=== PATIENT | male | born 1945 | race Caucasian/White ===

== ENCOUNTER 2017-01-26 08:12 | Emergency (ER) | payer MEDICARE, BC ==
--- NOTE | 2017-01-26 08:55 | EDM.PDOC ---
ED HPI GENERAL MEDICAL PROBLEM - General Chief Complaint: Chest Pain Stated Complaint: CHEST PAIN Time Seen by Provider: 01/26/17 08:50 Source of Information: Reports: Patient, Family History Limitations: Reports: No Limitations - History of Present Illness INITIAL COMMENTS - FREE TEXT/NARRATIVE: pt got up and he took a pill. He has some swallowing difficulty since he had a cervical fracture. He felt like this did not go down as well as it should. Onset: Sudden Duration: Other (lasted about 3/4 hour. ) Location: Reports: Neck, Other (Pt had burning in the neck area and he never had chest pain. ) Quality: Reports: Burning Associated Symptoms: Reports: Other (neck ) Throat Pain Score (Numeric/FACES): 6 - Related Data Allergies Allergy/AdvReac Type Severity Reaction Status Date / Time codeine Allergy Itching Verified 01/26/17 08:22 morphine Allergy Anaphylactic Verified 01/26/17 08:22 Shock Home Meds: Home Meds Beclomethasone Dipropionate [Qvar] 8.7 gm IH BID 05/21/13 [History] Bethanechol [Urecholine] 25 mg PO QID 05/21/13 [History] Cranberry Conc/Ascorbic Acid [Cranberry Plus Vitamin C Sftgl] 1 each PO BID [History] Cyanocobalamin (Vitamin B-12) [Vitamin B-12] 1,000 mcg PO DAILY 05/21/13 [ History] Doxazosin [Doxazosin Mesylate] 8 mg PO DAILY 05/21/13 [History] Gemfibrozil 600 mg PO DAILY 05/21/13 [History] Multivitamin [Multi-Vitamin Daily] 1 each PO DAILY 05/21/13 [History] Buspirone Hcl 15 mg PO BID 08/13/14 [History] Nasacort 2 spray TOP DAILY 09/01/14 [History] Diclofenac Sodium [Voltaren] 50 mg PO BID 01/26/17 [History] Past Medical History Cardiovascular History: Reports: High Cholesterol Respiratory History: Reports: Other (See Below) Other Respiratory History: air hunger Gastrointestinal History: Reports: GERD, Other (See Below) Other Gastrointestinal History: swollowing problem Genitourinary History: Reports: Neurogenic Bladder Musculoskeletal History: Reports: Back Pain, Chronic, Fracture Other Musculoskeletal History: heel fx neck Psychiatric History: Reports: Anxiety Hematologic History: Reports: Blood Transfusion(s) - Infectious Disease History Infectious Disease History: Reports: Chicken Pox, Measles, Mumps Social & Family History - Tobacco Use Smoking Status *Q: Never Smoker Second Hand Smoke Exposure: No - Caffeine Use Caffeine Use: Reports: Soda, Tea - Alcohol Use Days Per Week of Alcohol Use: 0 - Recreational Drug Use Recreational Drug Use: No ED ROS GENERAL - Review of Systems Review Of Systems: See Below Constitutional: Reports: No Symptoms HEENT: Reports: No Symptoms Respiratory: Reports: No Symptoms, Other ( burning in throat. ) Cardiovascular: Reports: No Symptoms Endocrine: Reports: No Symptoms GI/Abdominal: Reports: Other ( throat pain) : Reports: No Symptoms Musculoskeletal: Reports: No Symptoms Skin: Reports: No Symptoms ED EXAM, GENERAL - Physical Exam Exam: See Below Free Text/Narrative:: pt arrived with pain in th throat that lasted about 3/4 hour. This felt like the heart burn he has had in the past. The pain did go away by itself. He has alot of gerd and swallowing difficulty. Exam Limited By: No Limitations General Appearance: Alert, No Apparent Distress, Anxious Ears: Normal TMs Nose: Normal Inspection Throat/Mouth: Normal Inspection Head: Atraumatic Neck: Other ( burning in the throat. ) Respiratory/Chest: No Respiratory Distress Cardiovascular: Regular Rate, Rhythm (Male) Exam: Deferred Rectal (Males) Exam: Deferred Back Exam: Normal Inspection Extremities: Normal Inspection Neurological: Alert, Oriented, Normal Cognition Psychiatric: Normal Affect Course - Vital Signs Last Recorded V/S: Last Vital Signs Temp 36.2 C 01/26/17 08:22 Pulse 117 H 01/26/17 08:22 Resp 14 01/26/17 08:22 BP 126/73 01/26/17 08:22 Pulse Ox 93 L 01/26/17 08:22 - Orders/Labs/Meds Orders: Active Orders 24 hr Category Date Time Status EKG Documentation Completion [RC] ASDIRECTED Care 01/26/17 08:15 Active Chest 2V [CR] Stat Exams 01/26/17 09:22 Taken EKG 12 Lead [EK] Routine Ther 01/26/17 08:15 Ordered Labs: Laboratory Tests 01/26/17 01/26/17 01/26/17 Range/Units 08:40 08:40 08:40 WBC 8.4 (4.5-11.0) K/uL RBC 4.42 (4.30-5.90) M/uL Hgb 14.5 (12.0-15.0) g/dL Hct 43.4 (40.0-54.0) % MCV 98 (80-98) fL MCH 33 H (27-31) pg MCHC 33 (32-36) % Plt Count 154 (150-400) K/uL Neut % (Auto) 73 H (36-66) % Lymph % (Auto) 18 L (24-44) % [place] % (Auto) 6 (2-6) % Eos % (Auto) 3 (2-4) % Baso % (Auto) 1 (0-1) % Sodium 137 L (140-148) mmol/L Potassium 4.5 (3.6-5.2) mmol/L Chloride 104 (100-108) mmol/L Carbon Dioxide 23 (21-32) mmol/L Anion Gap 14.5 H (5.0-14.0) mmol/L BUN 32 H (7-18) mg/dL Creatinine 1.0 (0.8-1.3) mg/dL Est Cr Clr Drug Dosing TNP Estimated GFR (MDRD) > 60 (>60) Glucose 242 H (74-106) mg/dL Calcium 8.3 L (8.5-10.1) mg/dL Total Bilirubin 0.4 (0.2-1.0) mg/dL AST 37 (15-37) U/L ALT 53 (12-78) U/L Alkaline Phosphatase 71 (46-116) U/L Creatine Kinase 79 (39-308) U/L Troponin I < 0.017 (0.000-0.056) ng/mL Total Protein 7.3 (6.4-8.2) g/dL Albumin 3.2 L (3.4-5.0) g/dL Globulin 4.1 H (2.3-3.5) g/dL Albumin/Globulin Ratio 0.8 L (1.2-2.2) - Re-Assessments/Exams Free Text/Narrative Re-Assessment/Exam: 01/26/17 09:48 cardiac enzymes were normal. Bs is mildly elevated. He has not had any further pain since it went away. Departure - Departure Time of Disposition: 09:50 Disposition: Home, Self-Care 01 Condition: fair Clinical Impression: Esophageal spasm Forms: ED Department Discharge Care Plan Goals: cont same meds, rtc for a lexiscan. rtc to ER if patient has further throat pain., that is severe. - My Orders Last 24 Hours: My Active Orders 01/26/17 08:15 EKG Documentation Completion [RC] ASDIRECTED EKG 12 Lead [EK] Routine 01/26/17 09:22 Chest 2V [CR] Stat - Assessment/Plan Last 24 Hours: My Active Orders 01/26/17 08:15 EKG Documentation Completion [RC] ASDIRECTED EKG 12 Lead [EK] Routine 01/26/17 09:22 Chest 2V [CR] Stat
[2017-01-26 10:03] VITALS: BP 115/72
--- NOTE | 2017-01-26 10:14 | CR ---
Heart size upper limits of normal. Point vasculature within normal limits. Apical pleural thickening . No focal consolidation.
--- NOTE | 2017-01-31 08:06 | LETTER ---
DEVON Zhang [address] [place] [address] 01/29/2017 RE: PRASHANT DEVON Bennett : 1945 Dear Devon, You recently were in the emergency room and had an episode of severe burning in the throat area and upper chest area. It was thought since it dissipated, that it probably was acid that was creating the problem. Because of the fact that you had had this for a couple 3 hours, a decision was made to obtain a cardiac stress test. This has been accomplished and has returned completely normal. At this point, I do feel it was a reflux issue and no further followup in terms of the cardiac side of it need to be done. If you have questions, feel free to contact me. Sincerely, /[phone]
== END 2017-01-26 10:10 | disposition home or self-care (01) ==
LOC: JP.ED 08:12
DX: K22.4 Dyskinesia of esophagus (principal); E78.00 Pure hypercholesterolemia, unspecified; K21.9 Gastro-esophageal reflux disease without esophagitis; G89.29 Other chronic pain; M54.9 Dorsalgia, unspecified; Z79.899 Other long term (current) drug therapy; Z88.5 Allergy status to narcotic agent
CPT/HCPCS: 36415; 71020; 71020-26; 80053; 82550; 84484; 85025; 93005; 93010; 99282; 99285-25

== ENCOUNTER 2017-04-16 00:33 | Observation (INO) | payer MEDICARE, BC ==
[2017-04-16] MEDS ORDERED: LORazepam 2 MG/ML MDV IVPUSH ONE (01:07)
[2017-04-16] MEDS ORDERED: Sodium Chloride 0.9% 1,000 ML IV SCH ×4 (02:00→04:00)
--- NOTE | 2017-04-16 02:00 | EDM.PDOC ---
ED HPI GENERAL MEDICAL PROBLEM - General Chief Complaint: Diabetic Complaint Stated Complaint: MOUTH DRY / FREQUENT URINATION Time Seen by Provider: 04/16/17 00:50 Source of Information: Reports: Patient, Family History Limitations: Reports: No Limitations - History of Present Illness INITIAL COMMENTS - FREE TEXT/NARRATIVE: pt has had a dry mouth and has been going to the Br alot. He has noted this for a few weeks. He checked his bs and it was too high to read on a glucometer. Onset: Gradual Duration: Week(s):, Other (pt has had a very dry mouth. ) Associated Symptoms: Reports: Other ( dry. mouth and urinary frequency Pt has been drinking large amounts of pop because of the dry mouth. ) Generalized Pain Score (Numeric/FACES): 3 - Related Data Allergies Allergy/AdvReac Type Severity Reaction Status Date / Time codeine Allergy Itching Verified 01/27/17 08:40 morphine Allergy Anaphylactic Verified 01/27/17 08:40 Shock Home Meds: Home Meds Beclomethasone Dipropionate [Qvar 80 Mcg] 8.7 gm IH BID 05/21/13 [History] Bethanechol [Urecholine] 25 mg PO QID 05/21/13 [History] Cranberry Conc/Ascorbic Acid [Cranberry Plus Vitamin C Sftgl] 1 each PO BID [History] Cyanocobalamin (Vitamin B-12) [Vitamin B-12] 1,000 mcg PO DAILY 05/21/13 [ History] Doxazosin [Cardura] 8 mg PO DAILY 05/21/13 [History] Gemfibrozil 600 mg PO BID 05/21/13 [History] Buspirone Hcl 15 mg PO BID 08/13/14 [History] Diclofenac Sodium [Voltaren] 50 mg PO TID 01/26/17 [History] Insulin Aspart [Novolog Flexpen] 1 unit SQ TIDMEALS #2 pen 04/17/17 [Rx] Insulin Detemir [Levemir] 25 unit SUBCUT BEDTIME #2 pen 04/17/17 [Rx] metFORMIN [Glucophage] 500 mg PO BIDMEALS #60 tablet 04/17/17 [Rx] Past Medical History HEENT History: Reports: Other (See Below) Other HEENT History: glasses. deviated R septum. cpap. throat dry some times problem with swallowing Cardiovascular History: Reports: High Cholesterol Respiratory History: Reports: Other (See Below) Other Respiratory History: air hunger Gastrointestinal History: Reports: GERD, Other (See Below) Other Gastrointestinal History: swollowing problem Genitourinary History: Reports: Neurogenic Bladder Musculoskeletal History: Reports: Back Pain, Chronic, Fracture Other Musculoskeletal History: heel fx neck Psychiatric History: Reports: Anxiety Hematologic History: Reports: Blood Transfusion(s) - Infectious Disease History Infectious Disease History: Reports: Chicken Pox, Measles, Mumps - Past Surgical History GI Surgical History: Reports: Hernia, Abdominal Social & Family History - Tobacco Use Smoking Status *Q: Never Smoker Second Hand Smoke Exposure: No - Caffeine Use Caffeine Use: Reports: Tea - Alcohol Use Days Per Week of Alcohol Use: 0 - Recreational Drug Use Recreational Drug Use: No ED ROS GENERAL - Review of Systems Review Of Systems: See Below Constitutional: Reports: No Symptoms HEENT: Reports: Other ( dry mouth) Respiratory: Reports: No Symptoms Cardiovascular: Reports: No Symptoms Endocrine: Reports: No Symptoms GI/Abdominal: Reports: No Symptoms : Reports: Frequency Musculoskeletal: Reports: No Symptoms Skin: Reports: No Symptoms ED EXAM GENERAL NO PERIP PULSE - Physical Exam Exam: See Below Text/Narrative:: pt had a bs on the glocometer which was not readable it was so high. Exam Limited By: No Limitations General Appearance: Alert, Anxious Ears: Normal TMs Nose: Normal Inspection Throat/Mouth: Normal Inspection Head: Atraumatic Neck: Normal Inspection Respiratory/Chest: No Respiratory Distress Cardiovascular: Regular Rate, Rhythm GI/Abdominal: Soft, Non-Tender (Male) Exam: Deferred Rectal (Males) Exam: Deferred Back Exam: Normal Inspection Extremities: Normal Inspection Course - Vital Signs Last Recorded V/S: Last Vital Signs Temp 36.3 C 04/17/17 11:10 Pulse 84 04/17/17 11:10 Resp 16 04/17/17 11:10 BP 137/74 04/17/17 11:10 Pulse Ox 94 L 04/17/17 11:10 - Orders/Labs/Meds Labs: Laboratory Tests 04/16/17 04/16/17 04/16/17 Range/Units 01:00 01:00 01:00 WBC 6.8 (4.5-11.0) K/uL RBC 4.29 L (4.30-5.90) M/uL Hgb 14.1 (12.0-15.0) g/dL Hct 41.9 (40.0-54.0) % MCV 98 (80-98) fL MCH 33 H (27-31) pg MCHC 34 (32-36) % Plt Count 135 L (150-400) K/uL Neut % (Auto) 69 H (36-66) % Lymph % (Auto) 22 L (24-44) % [place] % (Auto) 6 (2-6) % Eos % (Auto) 2 (2-4) % Baso % (Auto) 1 (0-1) % Sodium 133 L (140-148) mmol/L Potassium 5.1 (3.6-5.2) mmol/L Chloride 97 L (100-108) mmol/L Carbon Dioxide 28 (21-32) mmol/L Anion Gap 13.1 (5.0-14.0) mmol/L BUN 34 H (7-18) mg/dL Creatinine 1.8 H D (0.8-1.3) mg/dL Est Cr Clr Drug Dosing 45.64 mL/min Estimated GFR (MDRD) 37 L (>60) Glucose 666 H* (74-106) mg/dL Hemoglobin A1c 11.5 H (4.5-6.2) % Calcium 9.2 (8.5-10.1) mg/dL Total Bilirubin 0.6 (0.2-1.0) mg/dL AST 62 H (15-37) U/L ALT 84 H (12-78) U/L Alkaline Phosphatase 85 (46-116) U/L Total Protein 7.8 (6.4-8.2) g/dL Albumin 3.3 L (3.4-5.0) g/dL Globulin 4.5 H (2.3-3.5) g/dL Albumin/Globulin Ratio 0.7 L (1.2-2.2) Lipase (73-393) U/L Urine Color Urine Appearance Urine pH (4.5-8.0) Ur Specific [place] (1.008-1.030) Urine Protein (NEGATIVE) mg/dL Urine Glucose (UA) (NEGATIVE) mg/dL Urine Ketones (NEGATIVE) mg/dL Urine Occult Blood (NEGATIVE) Urine Nitrite (NEGAITVE) Urine Bilirubin (NEGATIVE) Urine Urobilinogen (NORMAL) mg/dL Ur Leukocyte Esterase (NEGATIVE) Urine RBC (0-5) Urine WBC (0-5) Ur Epithelial Cells Amorphous Sediment Urine Bacteria Urine Mucus 04/16/17 04/16/17 04/16/17 Range/Units 01:15 03:10 03:30 WBC (4.5-11.0) K/uL RBC (4.30-5.90) M/uL Hgb (12.0-15.0) g/dL Hct (40.0-54.0) % MCV (80-98) fL MCH (27-31) pg MCHC (32-36) % Plt Count (150-400) K/uL Neut % (Auto) (36-66) % Lymph % (Auto) (24-44) % [place] % (Auto) (2-6) % Eos % (Auto) (2-4) % Baso % (Auto) (0-1) % Sodium (140-148) mmol/L Potassium (3.6-5.2) mmol/L Chloride (100-108) mmol/L Carbon Dioxide (21-32) mmol/L Anion Gap (5.0-14.0) mmol/L BUN (7-18) mg/dL Creatinine (0.8-1.3) mg/dL Est Cr Clr Drug Dosing mL/min Estimated GFR (MDRD) (>60) Glucose 602 H* (74-106) mg/dL Hemoglobin A1c (4.5-6.2) % Calcium (8.5-10.1) mg/dL Total Bilirubin (0.2-1.0) mg/dL AST (15-37) U/L ALT (12-78) U/L Alkaline Phosphatase (46-116) U/L Total Protein (6.4-8.2) g/dL Albumin (3.4-5.0) g/dL Globulin (2.3-3.5) g/dL Albumin/Globulin Ratio (1.2-2.2) Lipase 450 H (73-393) U/L Urine Color Yellow Urine Appearance Clear Urine pH 5.0 (4.5-8.0) Ur Specific [place] 1.010 (1.008-1.030) Urine Protein Negative (NEGATIVE) mg/dL Urine Glucose (UA) >1000 H (NEGATIVE) mg/dL Urine Ketones Negative (NEGATIVE) mg/dL Urine Occult Blood Negative (NEGATIVE) Urine Nitrite Negative (NEGAITVE) Urine Bilirubin Negative (NEGATIVE) Urine Urobilinogen Normal (NORMAL) mg/dL Ur Leukocyte Esterase Negative (NEGATIVE) Urine RBC 0-5 (0-5) Urine WBC 0-5 (0-5) Ur Epithelial Cells Rare Amorphous Sediment Not seen Urine Bacteria Few Urine Mucus Not seen 04/16/17 Range/Units 05:00 WBC (4.5-11.0) K/uL RBC (4.30-5.90) M/uL Hgb (12.0-15.0) g/dL Hct (40.0-54.0) % MCV (80-98) fL MCH (27-31) pg MCHC (32-36) % Plt Count (150-400) K/uL Neut % (Auto) (36-66) % Lymph % (Auto) (24-44) % [place] % (Auto) (2-6) % Eos % (Auto) (2-4) % Baso % (Auto) (0-1) % Sodium (140-148) mmol/L Potassium (3.6-5.2) mmol/L Chloride (100-108) mmol/L Carbon Dioxide (21-32) mmol/L Anion Gap (5.0-14.0) mmol/L BUN (7-18) mg/dL Creatinine (0.8-1.3) mg/dL Est Cr Clr Drug Dosing mL/min Estimated GFR (MDRD) (>60) Glucose 499 H* (74-106) mg/dL Hemoglobin A1c (4.5-6.2) % Calcium (8.5-10.1) mg/dL Total Bilirubin (0.2-1.0) mg/dL AST (15-37) U/L ALT (12-78) U/L Alkaline Phosphatase (46-116) U/L Total Protein (6.4-8.2) g/dL Albumin (3.4-5.0) g/dL Globulin (2.3-3.5) g/dL Albumin/Globulin Ratio (1.2-2.2) Lipase (73-393) U/L Urine Color Urine Appearance Urine pH (4.5-8.0) Ur Specific [place] (1.008-1.030) Urine Protein (NEGATIVE) mg/dL Urine Glucose (UA) (NEGATIVE) mg/dL Urine Ketones (NEGATIVE) mg/dL Urine Occult Blood (NEGATIVE) Urine Nitrite (NEGAITVE) Urine Bilirubin (NEGATIVE) Urine Urobilinogen (NORMAL) mg/dL Ur Leukocyte Esterase (NEGATIVE) Urine RBC (0-5) Urine WBC (0-5) Ur Epithelial Cells Amorphous Sediment Urine Bacteria Urine Mucus Meds: Medications Discontinued Medications Generic Name Dose Route Start Last Admin Trade Name Freq PRN Reason Stop Dose Admin Acetaminophen 650 mg 04/16/17 07:55 Tylenol PO Q4H PRN Pain (Mild 1-3)/fever Albuterol 2.5 mg 04/16/17 07:55 Proventil Neb Soln NEB Q4H PRN Shortness Of Breath/wheezing Dextrose 15 gm 04/16/17 07:55 Glutose 15 PO ONETIME PRN Hypoglycemia Dextrose/Water 50 ml 04/16/17 07:55 Dextrose 50% In Water IV ONETIME PRN Hypoglycemia Docusate Sodium 100 mg 04/16/17 07:55 04/17/17 10:36 Colace PO 100 mg BID PRN Administration Constipation Enoxaparin Sodium 40 mg 04/16/17 09:00 04/17/17 08:01 Lovenox SUBCUT 40 mg DAILY JASON Administration Gemfibrozil 600 mg 04/16/17 11:30 04/17/17 07:42 Lopid PO 600 mg BIDAC JASON Administration Sodium Chloride 1,000 mls @ 999 mls/hr 04/16/17 02:00 04/16/17 02:03 Normal Saline IV 999 mls/hr ASDIRECTED JASON Administration Sodium Chloride 1,000 mls @ 999 mls/hr 04/16/17 02:00 04/16/17 03:00 Normal Saline IV 999 mls/hr ASDIRECTED JASON Administration Sodium Chloride 1,000 mls @ 200 mls/hr 04/16/17 04:00 04/16/17 03:59 Normal Saline IV 200 mls/hr ASDIRECTED JASON Administration Sodium Chloride 1,000 mls @ 75 mls/hr 04/16/17 07:55 04/16/17 23:48 Normal Saline IV 75 mls/hr ASDIRECTED JASON Administration Insulin Aspart Confirm 04/16/17 02:07 04/16/17 02:18 Novolog Administered 04/16/17 02:08 10 units Dose Administration 1,000 unit .ROUTE .STK-MED ONE Insulin Aspart 10 unit 04/16/17 03:38 04/16/17 03:50 Novolog SUBCUT 04/16/17 03:39 10 units ONETIME ONE Administration Insulin Aspart 20 unit 04/16/17 05:43 04/16/17 05:53 Novolog SUBCUT 04/16/17 05:44 20 units ONETIME ONE Administration Insulin Aspart 10 unit 04/16/17 07:45 04/16/17 07:43 Novolog SUBCUT 04/16/17 07:46 10 units ONETIME ONE Administration Insulin Aspart 0 unit 04/16/17 07:55 04/17/17 11:58 Novolog SUBCUT 8 units ASDIRECTED JASON Administration Protocol Insulin Aspart 0 unit 04/16/17 19:15 04/16/17 19:36 Novolog SUBCUT 04/16/17 19:16 8 units ONETIME ONE Administration Insulin Detemir 12 unit 04/16/17 07:45 04/16/17 07:44 Levemir SUBCUT 04/16/17 07:46 12 units ONETIME ONE Administration Insulin Detemir 20 unit 04/16/17 21:00 04/16/17 21:19 Levemir SUBCUT 20 units BEDTIME JASON Administration Lorazepam 0.25 mg 04/16/17 01:07 04/16/17 02:20 Ativan IVPUSH 04/16/17 01:08 Not Given ONETIME ONE Magnesium Hydroxide 30 ml 04/16/17 07:55 Milk Of Magnesia PO Q12H PRN Constipation Metformin HCl 500 mg 04/16/17 08:00 04/17/17 07:43 Glucophage PO 500 mg BIDMEALS JASON Administration Qvar 80 Mcg Inhaler 0 gm 04/16/17 12:00 04/17/17 08:01 (Ptom) IH 1 gm BIDRT JASON Administration Bethanechol 25 Mg ( 0 mg 04/16/17 12:00 04/17/17 10:33 Ptom) PO 25 mg QID JASON Administration Buspirone 15 Mg ( 0 mg 04/16/17 12:00 04/17/17 08:00 Ptom) PO 1 mg BID JASON Administration Cranberry Conc/ 0 each 04/16/17 12:00 04/17/17 08:00 Ascorbic Acid (Ptom) PO 1 each BID JASON Administration Doxazosin 8 Mg (Ptom 0 mg 04/16/17 11:00 04/16/17 11:40 ) PO Not Given DAILY JASON Doxazosin 8 Mg (Ptom 0 mg 04/16/17 21:00 04/16/17 20:52 ) PO 8 mg BEDTIME JASON Administration Ondansetron HCl 4 mg 04/16/17 07:55 04/16/17 18:37 Zofran IV 4 mg Q4H PRN Administration Nausea/Vomiting Oxycodone HCl 5 mg 04/16/17 07:55 Oxycodone PO Q4H PRN Pain (moderate 4-6) Pantoprazole Sodium 40 mg 04/16/17 15:00 04/17/17 07:43 Protonix PO 40 mg DAILY@0730 JASON Administration Polyethylene Glycol 17 gm 04/16/17 07:55 Miralax PO DAILY PRN Constipation Sodium Chloride 10 ml 04/16/17 07:55 Saline Flush FLUSH ASDIRECTED PRN Keep Vein Open - Re-Assessments/Exams Free Text/Narrative Re-Assessment/Exam: 04/16/17 02:01 pt was given 2 liters of fluid and novolog . 10 unit subq. 04/16/17 05:46 pt has had a total of 30 units of novolog. His bs is still 499. will plan to admit the pt and continue to hydrate and then have him see the manager validation at the clinic. Departure - Departure Time of Disposition: 11:25 Disposition: Admitted As Inpatient 67 Condition: Fair Clinical Impression: Hyperglycemia, Renal insufficiency, mild, Dehydration Type 2 diabetes mellitus Qualifiers: Diabetes mellitus complication status: with hyperglycemia Diabetes mellitus termite exterminator helper insulin use: unspecified termite exterminator helper insulin use status Qualified Code(s ): E11.65 - Type 2 diabetes mellitus with hyperglycemia - Discharge Information
[2017-04-16] MEDS ORDERED: Insulin Aspart 100 Units/ML 3 ML Pen SUBCUT ONE ×4 (03:38→19:15)
[2017-04-16] MEDS ORDERED: Insulin Lispro 100 Units/ML 3 ML Vial SUBCUT SCH (07:30)
[2017-04-16] MEDS ORDERED: Insulin Detemir 100 Units/ML 3 ML Pen SUBCUT ONE (07:45)
[2017-04-16] MEDS ORDERED: 50% Dextrose in Water 50 ML Syringe IV PRN (07:55)
[2017-04-16] MEDS ORDERED: Acetaminophen 325 MG Tab PO PRN (07:55)
[2017-04-16] MEDS ORDERED: Sodium Chloride 0.9% 10 ML Syringe FLUSH PRN (07:55)
[2017-04-16] MEDS ORDERED: oxyCODONE 5 MG Tab PO PRN (07:55)
[2017-04-16] MEDS ORDERED: Glucose Gel 15 GM in 37.5 GM Tube PO PRN (07:55)
[2017-04-16] MEDS ORDERED: Ondansetron 4 MG/2 ML SDV IV PRN (07:55)
[2017-04-16] MEDS ORDERED: Polyethylene Glycol 3350 Powder 17 GM Packet PO PRN (07:55)
[2017-04-16] MEDS ORDERED: Docusate Sodium 100 MG Cap PO PRN (07:55)
[2017-04-16] MEDS ORDERED: Albuterol 0.083% 2.5 MG/3 ML Neb Soln NEB PRN (07:55)
[2017-04-16] MEDS ORDERED: Magnesium Hydroxide 400 MG/5 ML Susp 30 ML Cup PO PRN (07:55)
[2017-04-16] MEDS: metFORMIN 500 MG Tab PO SCH ×2 (09:05→16:51)
[2017-04-16] MEDS: Enoxaparin 40 MG/0.4 ML Syringe SUBCUT SCH (09:06)
[2017-04-16] MEDS: Sodium Chloride 0.9% 1,000 ML IV SCH ×2 (09:07→23:48)
[2017-04-16] MEDS ORDERED: DOXAZOSIN 8 MG PO SCH ×2 (11:00→21:00)
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
[2017-04-16] MEDS: Insulin Aspart 100 Units/ML 3 ML Pen SUBCUT SCH ×3 (11:37→21:20)
[2017-04-16] MEDS: GEMFIBROZIL 600 MG PO SCH ×2 (11:41→15:31)
[2017-04-16] MEDS: BETHANECHOL 25 MG PO SCH ×4 (11:44→21:07)
[2017-04-16] MEDS: QVAR 80 MCG IH SCH ×2 (11:44→20:49)
[2017-04-16] MEDS: BUSPIRONE 15 MG PO SCH ×2 (11:45→20:51)
[2017-04-16] MEDS: CRANBERRY PO SCH ×2 (11:45→20:50)
[2017-04-16] MEDS: ASCORBIC ACID PO SCH ×2 (11:45→20:50)
[2017-04-16] MEDS: Pantoprazole 40 MG Tab.CR PO SCH (15:29)
[2017-04-16] MEDS ORDERED: Insulin Detemir 100 Units/ML 3 ML Pen SUBCUT SCH (21:00)
[2017-04-17] MEDS: BETHANECHOL 25 MG PO SCH ×3 (04:20→10:33)
[2017-04-17] MEDS: GEMFIBROZIL 600 MG PO SCH (07:42)
[2017-04-17] MEDS: Pantoprazole 40 MG Tab.CR PO SCH (07:43)
[2017-04-17] MEDS: metFORMIN 500 MG Tab PO SCH (07:43)
[2017-04-17] MEDS: Insulin Aspart 100 Units/ML 3 ML Pen SUBCUT SCH ×2 (07:44→11:58)
[2017-04-17] MEDS: BUSPIRONE 15 MG PO SCH (08:00)
[2017-04-17] MEDS: CRANBERRY PO SCH (08:00)
[2017-04-17] MEDS: ASCORBIC ACID PO SCH (08:00)
[2017-04-17] MEDS: Enoxaparin 40 MG/0.4 ML Syringe SUBCUT SCH (08:01)
[2017-04-17] MEDS: QVAR 80 MCG IH SCH (08:01)
[2017-04-17 11:11] VITALS: BP 137/74
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
== END 2017-04-17 17:29 | disposition home or self-care (01) ==
LOC: JP.ED 00:33 → JP.MS 07:24
PROVIDERS: ADMIT Hospitalist; ATTEND Internal Medicine
DX: E11.65 Type 2 diabetes mellitus with hyperglycemia (principal); N17.9 Acute kidney failure, unspecified; E86.0 Dehydration; K21.9 Gastro-esophageal reflux disease without esophagitis; F41.9 Anxiety disorder, unspecified; E78.00 Pure hypercholesterolemia, unspecified; Z98.890 Other specified postprocedural states; Z87.891 Personal history of nicotine dependence; Z79.4 Long term (current) use of insulin; Z79.84 Long term (current) use of oral hypoglycemic drugs; Z79.899 Other long term (current) drug therapy; Z88.8 Allergy status to other drugs, medicaments and biological substances
CPT/HCPCS: 36415; 80048; 80053; 81001; 82947; 82962; 83036; 83690; 85025; 96360; 96361; 96372; 96374; 99284; A9270; G0378; J1650; J2405; J7040; 99235

== ENCOUNTER 2020-03-06 06:49 | Emergency (ER) | payer MEDICARE, BC ==
[2020-03-06 07:05] VITALS: BP 130/44; PULSE 78
[2020-03-06] MEDS ORDERED: HYDROmorphone 1 MG/ML Syringe IVPUSH ONE (07:19)
--- NOTE | 2020-03-06 07:26 | EDM.PDOC ---
ED HPI GENERAL MEDICAL PROBLEM - General Chief Complaint: Lower Extremity Injury/Pain Stated Complaint: MEDICAL VIA [facility] Time Seen by Provider: 03/06/20 07:15 Source of Information: Reports: Patient, Family, RN Notes Reviewed History Limitations: Reports: No Limitations - History of Present Illness INITIAL COMMENTS - FREE TEXT/NARRATIVE: 74-year-old gentleman presents emergency department today with complaint of hip and knee pain. Does have a history of chronic back pain in which he receives steroid injections for. However this morning when he was using his walker felt very weak left himself to the ground in an awkward position has been unable to stand and now is experiencing significant hip pain rates it 8 out of 10. He cannot recall any details of the event states he did not lose consciousness did not hit his head just feels like his leg gave out on him - Related Data Allergies Allergy/AdvReac Type Severity Reaction Status Date / Time codeine Allergy Itching Verified 03/06/20 06:56 morphine Allergy Anaphylactic Verified 03/06/20 06:56 Shock Home Meds: Home Meds Beclomethasone Dipropionate [Qvar 80 Mcg] 8.7 gm IH BID 05/21/13 [History] Bethanechol [Urecholine] 25 mg PO QID 05/21/13 [History] Cranberry Conc/Ascorbic Acid [Cranberry Plus Vitamin C Sftgl] 1 each PO BID [History] Cyanocobalamin (Vitamin B-12) [Vitamin B-12] 1,000 mcg PO DAILY 05/21/13 [History] Doxazosin [Cardura] 8 mg PO DAILY 05/21/13 [History] Gemfibrozil 600 mg PO BID 05/21/13 [History] Buspirone Hcl 15 mg PO BID 08/13/14 [History] Diclofenac Sodium [Voltaren] 50 mg PO TID 01/26/17 [History] Insulin Aspart [Novolog Flexpen] 1 unit SQ TIDMEALS #2 pen 04/17/17 [Rx] Insulin Detemir [Levemir] 25 unit SUBCUT BEDTIME #2 pen 04/17/17 [Rx] glipiZIDE [Glipizide ER] 10 mg PO DAILY 02/19/20 [History] Past Medical History HEENT History: Reports: Other (See Below) Other HEENT History: glasses. deviated R septum. cpap. throat dry some times problem with swallowing Cardiovascular History: Reports: High Cholesterol, Hypertension Respiratory History: Reports: Other (See Below) Other Respiratory History: air hunger Gastrointestinal History: Reports: GERD, Other (See Below) Other Gastrointestinal History: swollowing problem Genitourinary History: Reports: Neurogenic Bladder Musculoskeletal History: Reports: Back Pain, Chronic, Fracture Other Musculoskeletal History: heel fx neck Psychiatric History: Reports: Anxiety Hematologic History: Reports: Blood Transfusion(s) - Infectious Disease History Infectious Disease History: Reports: Chicken Pox, Measles, Mumps - Past Surgical History GI Surgical History: Reports: Hernia, Abdominal Social & Family History - Tobacco Use Smoking Status *Q: Never Smoker - Caffeine Use Caffeine Use: Reports: Tea Review of Systems - Review of Systems Review Of Systems: See Below Respiratory: Reports: No Symptoms Cardiovascular: Reports: No Symptoms Musculoskeletal: Reports: Joint Pain (Hip pain and knee pain left side) ED EXAM, GENERAL - Physical Exam Exam: See Below Free Text/Narrative:: Examination of the left lower extremity he does have +2 edema pedal pulse is palpable the leg is bent and externally rotated I cannot appreciate any point tenderness to palpation to the knee or hip area however any internal or external rotation of the hip causes excruciating pain any movement of the knee which will then move the hip causes excruciating pain difficult to perform any exam. Exam Limited By: No Limitations General Appearance: Alert, WD/WN, No Apparent Distress Course - Vital Signs Last Recorded V/S: Last Vital Signs Temp 98.2 F 03/06/20 07:04 Pulse 78 03/06/20 07:04 Resp 14 03/06/20 07:04 BP 130/44 L 03/06/20 07:04 Pulse Ox 92 L 03/06/20 07:04 - Orders/Labs/Meds Orders: Active Orders 24 hr Category Date Time Status Hip Min 2V or 3V w Pelvis Lt [CR] Stat Exams 03/06/20 07:19 Taken Meds: Medications Discontinued Medications Generic Name Dose Route Start Last Admin Trade Name Freq PRN Reason Stop Dose Admin Hydromorphone HCl 1 mg 03/06/20 07:19 03/06/20 07:50 Dilaudid IVPUSH 03/06/20 07:20 1 mg ONETIME ONE Administration Lorazepam 1 mg 03/06/20 07:53 Ativan IVPUSH 03/06/20 07:54 ONETIME ONE Departure - Departure Time of Disposition: 08:29 Disposition: DC/Tfer to Acute Hospital 02 Condition: Fair Clinical Impression: Fracture of femur, left, closed Qualifiers: Encounter type: initial encounter Femur location: head, unspecified portion Qualified Code(s): S72.052A - Unspecified fracture of head of left femur, initial encounter for closed fracture - Discharge Information Referrals: PCP,None [Primary Care Provider] - Forms: ED Department Discharge Sepsis Event Note (ED) - Evaluation Sepsis Screening Result: No Definite Risk - Focused Exam Vital Signs: Vital Signs Temp Pulse Resp BP Pulse Ox 03/06/20 07:04 98.2 F 78 14 130/44 L 92 L - My Orders Last 24 Hours: My Active Orders 03/06/20 07:19 Hip Min 2V or 3V w Pelvis Lt [CR] Stat - Assessment/Plan Last 24 Hours: My Active Orders 03/06/20 07:19 Hip Min 2V or 3V w Pelvis Lt [CR] Stat Plan: Assessment Acuity = acute Site and laterality = left femur fracture below the lesser trochanter left side 100% displacement Etiology = secondary to fall Manifestations = none Location of injury = Home Lab values = x-rays described a fracture above official read of radiology is pending Plan Call discussed case with Dr. Robles kindly accept the patient in transport at 815, will be transported via EMS ground thus far has received 250 mcg fentanyl 1 mg Dilaudid 1 mg Ativan [address] This note was dictated using [employer] voice recognition software please call with any questions on syntax or grammar.
[2020-03-06] MEDS ORDERED: LORazepam 2 MG/ML SDV IVPUSH ONE ×2 (07:53→10:47)
--- NOTE | 2020-03-06 08:09 | CRLCR ---
INDICATION: fall,pain HISTORY: Fall. Pain. COMPARISON: None. TECHNIQUE: AP radiograph the pelvis, cross-table view of the left hip. FINDINGS: There is a displaced fracture of the left proximal femur, which appears extracapsular and sub trochanteric. No additional injury is identified. The symphysis pubis and superior/inferior pubic rami are intact. Right hip appears in anatomic alignment. Arcuate lines in the sacrum are intact. There is no lytic or blastic bone lesion. Degenerative disc disease in the lower lumbar spine. IMPRESSION: Displaced fracture deformity of the left proximal femur. Dictated by Eulalio Armas MD @ 03/06/2020 8:08:42 AM Dictated by: Eulalio Armas MD @ 03/06/2020 08:08:47 (Electronically Signed)
[2020-03-06] MEDS ORDERED: fentaNYL 100 MCG/2 ML SDV IVPUSH ONE ×2 (08:48→10:40)
== END 2020-03-06 11:02 ==
LOC: JP.ED 06:49
DX: S72.052A Unspecified fracture of head of left femur, initial encounter for closed fracture (principal); I10 Essential (primary) hypertension; F41.9 Anxiety disorder, unspecified; Z79.4 Long term (current) use of insulin; Z88.5 Allergy status to narcotic agent; Z79.899 Other long term (current) drug therapy; X58.XXXA Exposure to other specified factors, initial encounter
CPT/HCPCS: 73502; 96374; 96375; 96376; 99285; J1170; J2060; J3010

== ENCOUNTER 2020-04-18 18:52 | Emergency (ER) | payer MEDICARE, BC ==
[2020-04-18 18:56] VITALS: PULSE 79
--- NOTE | 2020-04-18 19:39 | EDM.PDOC ---
ED HPI GENERAL MEDICAL PROBLEM - General Chief Complaint: Wound Recheck Stated Complaint: MED VIA [facility] Time Seen by Provider: 04/18/20 19:24 Source of Information: Reports: Patient History Limitations: Reports: No Limitations - History of Present Illness INITIAL COMMENTS - FREE TEXT/NARRATIVE: 74 yo male presents with left hip pain. 03/06 he fractured his femur, it was surgically repaired. He has been able ambulate with walker and participate in PT. He does have some sharp pain with PT but today at 1230 he developed sharp pain that progressively worsened through the day. He has taken oxycodone 15 mg today and states that pain is still a 9/10. Prior to today he has not had the severe pain. He is unable to bear any weight without severe pain. afebrile. - Related Data Allergies Allergy/AdvReac Type Severity Reaction Status Date / Time No Known Allergies Allergy Verified 04/18/20 19:08 Home Meds: Home Meds Beclomethasone Dipropionate [Qvar 80 Mcg] 8.7 gm IH BID 05/21/13 [History] Bethanechol [Urecholine] 25 mg PO QID 05/21/13 [History] Cranberry Conc/Ascorbic Acid [Cranberry Plus Vitamin C Sftgl] 1 each PO BID 05/21/13 [History] Cyanocobalamin (Vitamin B-12) [Vitamin B-12] 1,000 mcg PO DAILY 05/21/13 [History] Doxazosin [Cardura] 8 mg PO DAILY 05/21/13 [History] Gemfibrozil 600 mg PO BID 05/21/13 [History] busPIRone [Buspar] 15 mg PO BID #0 08/13/14 [History] Diclofenac Sodium [Voltaren] 50 mg PO TID 01/26/17 [History] Insulin Aspart [Novolog Flexpen] 1 unit SQ TIDMEALS #2 pen 04/17/17 [Rx] Insulin Detemir [Levemir] 25 unit SUBCUT BEDTIME #2 pen 04/17/17 [Rx] glipiZIDE [Glipizide ER] 10 mg PO DAILY 02/19/20 [History] Albuterol Sulfate [Albuterol Sulfate Hfa] 108 mcg IH ASDIRECTED 04/18/20 [History] oxyCODONE HCl/Acetaminophen [Oxycodone-Acetaminophen 5-325] 1 tab PO Q4H 04/18/20 [History] Past Medical History HEENT History: Reports: Impaired Vision, Other (See Below) Other HEENT History: glasses. deviated R septum. cpap. throat dry some times problem with swallowing Cardiovascular History: Reports: High Cholesterol, Hypertension Respiratory History: Reports: Other (See Below) Other Respiratory History: air hunger Gastrointestinal History: Reports: GERD, Other (See Below) Other Gastrointestinal History: swollowing problem Genitourinary History: Reports: BPH, Neurogenic Bladder Musculoskeletal History: Reports: Back Pain, Chronic, Fracture Other Musculoskeletal History: heel fx neck fx femur Psychiatric History: Reports: Anxiety Hematologic History: Reports: Blood Transfusion(s) - Infectious Disease History Infectious Disease History: Reports: Chicken Pox - Past Surgical History GI Surgical History: Reports: Hernia, Abdominal Social & Family History - Tobacco Use Smoking Status *Q: Never Smoker - Caffeine Use Caffeine Use: Reports: Coffee - Recreational Drug Use Recreational Drug Use: No Review of Systems - Review of Systems Review Of Systems: See Below Constitutional: Denies: Chills, Fever Respiratory: Denies: Shortness of Breath Cardiovascular: Denies: Chest Pain ED EXAM, GENERAL - Physical Exam Exam: See Below Exam Limited By: No Limitations General Appearance: Alert, WD/WN, No Apparent Distress Respiratory/Chest: No Respiratory Distress, Lungs Clear. No: Crackles, Rhonchi, Wheezing Cardiovascular: Regular Rate, Rhythm Extremities: Other (severe pain with movement of left leg, pain is in groin.) Course - Vital Signs Last Recorded V/S: Last Vital Signs Temp 36.3 C 04/18/20 19:08 Pulse 79 04/18/20 19:08 Resp 12 04/18/20 19:08 BP 120/50 L 04/18/20 19:08 Pulse Ox 96 04/18/20 19:08 - Orders/Labs/Meds Orders: Active Orders 24 hr Category Date Time Status HYDROmorphone [Dilaudid] Med 04/18/20 21:53 Once 1 mg IVPUSH ONETIME ONE Ondansetron [Zofran] Med 04/18/20 21:52 Once 4 mg IVPUSH ONETIME ONE - Radiology Interpretation Free Text/Narrative:: femur impression:Prior left hip screw and femoral nail fixation of a left proximal femur fracture. The 2 distal locking screws are now fractured indicating distal migration of the femoral intramedullary nail. Departure - Departure Time of Disposition: 21:58 Disposition: DC/Tfer to Acute Hospital 02 Condition: Good Clinical Impression: Femur fracture, left Qualifiers: Encounter type: subsequent encounter Femur location: unspecified portion of femur Fracture type: closed Fracture morphology: unspecified fracture morphology Fracture healing: with malunion Qualified Code(s): S72.92XP - Unspecified fracture of left femur, subsequent encounter for closed fracture with malunion Post-operative complication Qualifiers: Surgical complication system/body Area: musculoskeletal system Surgical complication type: unspecified Procedure type: musculoskeletal Qualified Code(s): M96.89 - Other intraoperative and postprocedural complications and disorders of the musculoskeletal system - Discharge Information *PRESCRIPTION DRUG MONITORING PROGRAM REVIEWED*: Not Applicable *COPY OF PRESCRIPTION DRUG MONITORING REPORT IN PATIENT JAX: Not Applicable Referrals: PCP,None [Primary Care Provider] - Forms: ED Department Discharge Sepsis Event Note (ED) - Evaluation Sepsis Screening Result: No Definite Risk - Focused Exam Vital Signs: Vital Signs Temp Pulse Resp BP Pulse Ox 04/18/20 19:08 36.3 C 79 12 120/50 L 96 04/18/20 18:53 36.3 C 79 12 120/50 L 96 - My Orders Last 24 Hours: My Active Orders 04/18/20 21:52 Ondansetron [Zofran] 4 mg IVPUSH ONETIME ONE 04/18/20 21:53 HYDROmorphone [Dilaudid] 1 mg IVPUSH ONETIME ONE - Assessment/Plan Last 24 Hours: My Active Orders 04/18/20 21:52 Ondansetron [Zofran] 4 mg IVPUSH ONETIME ONE 04/18/20 21:53 HYDROmorphone [Dilaudid] 1 mg IVPUSH ONETIME ONE
--- NOTE | 2020-04-18 20:31 | CRLCR ---
INDICATION: Post operative pain TECHNIQUE: Hip radiograph 2 views left COMPARISON: 03/06/2020 FINDINGS: Bone: The subacute subtrochanteric fracture seen on prior examination has been reduced by a long intramedullary nail and helical blade. The distal fragment remains displaced medially by 1.4 cm and impacted by 1.6 cm. The iliac crests are partially excluded. Joint: Unremarkable. The visualized sacroiliac joint is unremarkable in appearance. Soft tissue: Unremarkable. No radiopaque foreign bodies are seen. IMPRESSION: 1. The subacute subtrochanteric fracture seen on prior examination has been reduced by a long intramedullary nail and helical blade. The distal fragment remains displaced medially by 1.4 cm and impacted by 1.6 cm. Dictated by Dominic Chan MD @ 04/18/2020 8:28:15 PM Dictated by: Dominic Chan MD @ 04/18/2020 20:29:01 (Electronically Signed)
--- NOTE | 2020-04-18 20:41 | CRLCR ---
HISTORY: Postoperative pain. TECHNIQUE: Two views of the left femur. COMPARISON: 04/18/2020 and 03/06/2020. FINDINGS: Patient is status post left hip screw and femoral nail fixation of a displaced left proximal femoral fracture present at the level of the lesser trochanter and subtrochanteric proximal femur. On the lateral view, note is made of a displaced lesser trochanteric fragment and a displaced proximal shaft fragment. There remains medial displacement of the distal fragment with respect to the proximal aspect of the femur. The distal locking screws are fractured related to distal migration of the femoral intramedullary nail. IMPRESSION: Prior left hip screw and femoral nail fixation of a left proximal femur fracture. The 2 distal locking screws are now fractured indicating distal migration of the femoral intramedullary nail. Dictated by Robel Grove MD @ 04/18/2020 8:40:33 PM Dictated by: Robel Grove MD @ 04/18/2020 20:40:40 (Electronically Signed)
[2020-04-18] MEDS ORDERED: Ondansetron 4 MG/2 ML SDV IVPUSH ONE (21:52)
[2020-04-18] MEDS ORDERED: HYDROmorphone 1 MG/ML Syringe IVPUSH ONE (21:53)
[2020-04-18 22:20] VITALS: BP 128/48
== END 2020-04-18 22:36 ==
LOC: JP.ED 18:52
DX: S72.92XP Unspecified fracture of left femur, subsequent encounter for closed fracture with malunion (principal); M96.89 Other intraoperative and postprocedural complications and disorders of the musculoskeletal system; I10 Essential (primary) hypertension; F41.9 Anxiety disorder, unspecified; Z79.899 Other long term (current) drug therapy; X58.XXXD Exposure to other specified factors, subsequent encounter
CPT/HCPCS: 73502; 73552; 96374; 96375; 99284; J1170; J2405

== ENCOUNTER 2020-09-25 20:31 | Emergency (ER) | payer MEDICARE, BC ==
[2020-09-25 20:35] VITALS: BP 154/63; PULSE 89
--- NOTE | 2020-09-25 20:50 | EDM.PDOC ---
ED HPI GENERAL MEDICAL PROBLEM - General Chief Complaint: Lower Extremity Injury/Pain Stated Complaint: MEDICAL VIA [facility] Time Seen by Provider: 09/25/20 20:35 Source of Information: Reports: Patient History Limitations: Reports: No Limitations - History of Present Illness INITIAL COMMENTS - FREE TEXT/NARRATIVE: 75-year-old male who has had several femur surgeries on the left side, felt a pop early this morning when he moved wrong and has been having discomfort in his left leg since. He really does not have pain, it is just not "working right". He called the clinic and made an appointment, but the clinic later then called him back and told him to go to the emergency room instead. He really is not having pain and can bear weight partially but his leg just does not feel as coordinated. He had a complex fixation of the left femur 3 months ago and was given the okay after x-rays on August 21 to start bearing weight. Onset: Sudden Duration: Hour(s): (A sudden pop was about 18 hours ago at around 4 AM) Location: Reports: Lower Extremity, Left Quality: Reports: Other (Feels weaker and not coordinated) Associated Symptoms: Reports: No Other Symptoms - Related Data Allergies Allergy/AdvReac Type Severity Reaction Status Date / Time No Known Allergies Allergy Verified 09/25/20 21:06 Home Meds: Home Meds Beclomethasone Dipropionate [Qvar 80 Mcg] 8.7 gm IH BID 05/21/13 [History] Bethanechol [Urecholine] 25 mg PO QID 05/21/13 [History] Cranberry Conc/Ascorbic Acid [Cranberry Plus Vitamin C Sftgl] 1 each PO BID 05/21/13 [History] Cyanocobalamin (Vitamin B-12) [Vitamin B-12] 1,000 mcg PO DAILY 05/21/13 [History] Doxazosin [Cardura] 8 mg PO DAILY 05/21/13 [History] Gemfibrozil 600 mg PO BID 05/21/13 [History] busPIRone [Buspar] 15 mg PO BID #0 08/13/14 [History] Diclofenac Sodium [Voltaren] 50 mg PO TID 01/26/17 [History] Insulin Aspart [Novolog Flexpen] 1 unit SQ TIDMEALS #2 pen 04/17/17 [Rx] glipiZIDE [Glipizide ER] 10 mg PO DAILY 02/19/20 [History] Albuterol Sulfate [Albuterol Sulfate Hfa] 108 mcg IH ASDIRECTED 04/18/20 [History] Calc/D3/Mag/Zn/Rodolfo/Massimo/Seward [Calcium 600 MG Plus Vit D] 1 tab PO DAILY 09/25/20 [History] Cholecalciferol (Vitamin D3) [Vitamin D3] 1 cap PO DAILY 09/25/20 [History] Insulin Detemir [Levemir] 52 unit SUBCUT BEDTIME 09/25/20 [History] Sennosides/Docusate Sodium [Docusate Sodium-Sennosides Tab] 1 tab PO DAILY 09/25/20 [History] polyethylene glycoL 3350 [MiraLAX] 17 gm PO DAILY PRN 09/25/20 [History] Past Medical History HEENT History: Reports: Impaired Vision, Other (See Below) Other HEENT History: glasses. deviated R septum. cpap. throat dry some times problem with swallowing Cardiovascular History: Reports: High Cholesterol, Hypertension Respiratory History: Reports: Other (See Below) Other Respiratory History: air hunger Gastrointestinal History: Reports: GERD, Other (See Below) Other Gastrointestinal History: swollowing problem Genitourinary History: Reports: BPH, Neurogenic Bladder Musculoskeletal History: Reports: Back Pain, Chronic, Fracture Other Musculoskeletal History: heel fx neck fx femur Psychiatric History: Reports: Anxiety Hematologic History: Reports: Blood Transfusion(s) - Infectious Disease History Infectious Disease History: Reports: Chicken Pox - Past Surgical History GI Surgical History: Reports: Hernia, Abdominal Social & Family History - Caffeine Use Caffeine Use: Reports: Coffee Review of Systems - Review of Systems Review Of Systems: See Below Constitutional: Denies: Fever Respiratory: Denies: Shortness of Breath Cardiovascular: Denies: Chest Pain Skin: Denies: Bruising Neurological: Denies: Paresthesia (No numbness of the distal extremity) ED EXAM, GENERAL - Physical Exam Exam: See Below Exam Limited By: No Limitations General Appearance: Alert, No Apparent Distress Head: Atraumatic Respiratory/Chest: No Respiratory Distress Extremities: Other (The left lower extremity is externally rotated and shorter than the right. According to the patient this is not unusual. Passive range of motion of the hip and femur causes no pain except with external rotation.) Course - Vital Signs Last Recorded V/S: Last Vital Signs Temp 99.1 F 09/25/20 20:39 Pulse 89 09/25/20 20:39 Resp 16 09/25/20 20:39 BP 154/63 H 09/25/20 20:39 Pulse Ox 97 09/25/20 20:39 - Orders/Labs/Meds Orders: Active Orders 24 hr Category Date Time Status Femur Min 2V Lt [CR] Stat Exams 09/25/20 20:32 Taken - Re-Assessments/Exams Free Text/Narrative Re-Assessment/Exam: 09/25/20 21:20 X-rays of the left femur and left hip are obtained and does show a change in position of the fixation hardware, and a possible widening of the fracture line. The films were sent to orthopedics at [facility] and will be reviewed and they will give me a call back. Patient was able to get up with assistance, use a urinal with partial weightbearing, and returned to the bed. 09/25/20 22:12 X-ray confirms a likely new partial femur fracture. Discussed this with his surgeon Dr. Morrissey, and he agreed to call the patient on Monday. No weightbearing until recheck with Dr. Morrissey. Departure - Departure Time of Disposition: 23:58 Disposition: Home, Self-Care 01 Clinical Impression: Closed fracture of proximal end of left femur Qualifiers: Encounter type: initial encounter Qualified Code(s): S72.002A - Fracture of unspecified part of neck of left femur, initial encounter for closed fracture - Discharge Information Instructions: Femoral Shaft Fracture Referrals: Malik Bourne MD [Primary Care Provider] - Forms: ED Department Discharge Care Plan Goals: Dr. Morrissey is calling you on Monday, avoid weightbearing with your leg until that time. Sepsis Event Note (ED) - Evaluation Sepsis Screening Result: No Definite Risk - Focused Exam Vital Signs: Vital Signs Temp Pulse Resp BP Pulse Ox 09/25/20 20:39 99.1 F 89 16 154/63 H 97 09/25/20 20:32 99.1 F 89 16 154/63 H 97 - My Orders Last 24 Hours: My Active Orders 09/25/20 20:32 Femur Min 2V Lt [CR] Stat - Assessment/Plan Last 24 Hours: My Active Orders 09/25/20 20:32 Femur Min 2V Lt [CR] Stat
--- NOTE | 2020-09-28 11:20 | CR ---
Femur Min 2V Lt CLINICAL HISTORY: Pain FINDINGS: Patient has a subtrochanteric fracture or recurrent fracture. There has also been a fracture of the external fixation plate across the fracture plane. There is increase in angulation since prior June study. IMPRESSION: Recurrent subtrochanteric fracture. There is also a fracture of the fixation plate.
== END 2020-09-25 23:09 | disposition home or self-care (01) ==
LOC: JP.ED 20:31
DX: S72.22XA Displaced subtrochanteric fracture of left femur, initial encounter for closed fracture (principal); I10 Essential (primary) hypertension; K21.9 Gastro-esophageal reflux disease without esophagitis; Z79.4 Long term (current) use of insulin; Z79.899 Other long term (current) drug therapy; X58.XXXA Exposure to other specified factors, initial encounter
CPT/HCPCS: 73552-26-LT; 73552-LT; 99283; 99284

== ENCOUNTER 2022-12-25 11:13 | Inpatient (IN) | payer MEDICARE, BC ==
[2022-12-25 11:48] LABS: ESTIMATED GFR 70 mL/min (>60)
[2022-12-25] MEDS ORDERED: cefTRIAXone 2 GM in Sodium Chloride 0.9% 50 ML IV ONE (11:52)
[2022-12-25] MEDS ORDERED: methylPREDNISolone Sodium Succinate 125 MG/2 ML SDV IVPUSH ONE (11:53)
[2022-12-25] MEDS ORDERED: Sodium Chloride 0.9% 1,000 ML IV ONE (12:30)
[2022-12-25 12:31] LABS: CORONAVIRUS COVID-19 NAA NEGATIVE (NEGATIVE)
[2022-12-25] MEDS ORDERED: Ondansetron 4 MG/2 ML SDV IV PRN (13:37)
[2022-12-25] MEDS ORDERED: Acetaminophen 650 MG Supp RECTAL PRN (13:37)
[2022-12-25] MEDS ORDERED: Sodium Chloride 0.9% 1,000 ML IV SCH (13:37)
[2022-12-25] MEDS ORDERED: Morphine 2 MG/ML SYRINGE IVPUSH PRN (13:37)
[2022-12-25] MEDS ORDERED: Acetaminophen 325 MG Tab PO PRN (13:37)
[2022-12-25] MEDS ORDERED: Albuterol 0.083% 2.5 MG/3 ML Neb Soln NEB PRN (13:37)
[2022-12-25] MEDS ORDERED: LORazepam 2 MG/ML SDV IVPUSH PRN (13:37)
[2022-12-25 14:25] VITALS: BP 93/27; PULSE 71
[2022-12-25] MEDS ORDERED: Levofloxacin/Dextrose 5%-Water 750 MG in Premix Bag 1 BAG IV SCH (15:00)
[2022-12-25] MEDS ORDERED: Insulin Lispro 100 Unit/ML 3 ML KwikPen SUBCUT SCH (17:00)
[2022-12-25] MEDS ORDERED: methylPREDNISolone Sodium Succinate 125 MG/2 ML SDV IVPUSH SCH (20:00)
[2022-12-26] MEDS ORDERED: cefTRIAXone 2 GM in Sodium Chloride 0.9% 50 ML IV SCH (01:00)
== END 2022-12-25 14:45 | disposition expired | DRG 871 ==
LOC: JP.ED 11:13 → JP.MS 12:59
PROVIDERS: ADMIT Internal Medicine; ATTEND Internal Medicine
DX: A41.9 Sepsis, unspecified organism (principal); J18.9 Pneumonia, unspecified organism; J96.01 Acute respiratory failure with hypoxia; J96.02 Acute respiratory failure with hypercapnia; G93.49 Other encephalopathy; E87.20 Acidosis, unspecified; Z68.41 Body mass index [BMI] 40.0-44.9, adult; R65.20 Severe sepsis without septic shock; Z51.5 Encounter for palliative care; Z66 Do not resuscitate; E11.65 Type 2 diabetes mellitus with hyperglycemia; E66.01 Morbid (severe) obesity due to excess calories; Z20.822 Contact with and (suspected) exposure to COVID-19; E78.00 Pure hypercholesterolemia, unspecified; K21.9 Gastro-esophageal reflux disease without esophagitis; E11.51 Type 2 diabetes mellitus with diabetic peripheral angiopathy without gangrene; H54.7 Unspecified visual loss; N40.0 Benign prostatic hyperplasia without lower urinary tract symptoms; G89.29 Other chronic pain; M54.9 Dorsalgia, unspecified; F41.9 Anxiety disorder, unspecified; Z87.891 Personal history of nicotine dependence; Z79.4 Long term (current) use of insulin; Z79.51 Long term (current) use of inhaled steroids; Z79.899 Other long term (current) drug therapy; Z99.81 Dependence on supplemental oxygen; Z98.890 Other specified postprocedural states
CPT/HCPCS: 0241U; 36415; 36600; 71045; 71045-26; 80053; 81001; 82803; 83605; 85025; 96365; 96375; 99223; 99285; 99285-25; J0696; J1956; J2060; J2930; J3490; J7030